=== PATIENT | female | born 1945 | race Caucasian/White ===

== ENCOUNTER 2019-05-28 15:12 | Inpatient (IN) ==
--- NOTE | 2019-05-28 15:46 | Diag Imaging Result Doc PS360 ---
EXAM: CT HEAD W/O CONTRAST 05/28/2019 HISTORY: facial numbness TECHNIQUE: This exam was performed using automated exposure control, adjustment of mA or kV according to patient size, and/or use of iterative reconstruction technique. COMMENT: There is no evidence of mass effect, bleed, or abnormal extra-axial fluid collection. There is no evidence of hydrocephalus. Compared to 03/11/2019 there has been no significant change. The visualized paranasal sinuses are clear. The calvarium is intact. IMPRESSION: No evidence of acute intracranial disease. Electronically signed by Brayden Benitez 05/28/2019 3:43 PM
--- NOTE | 2019-05-28 15:54 | Diag Imaging Result Doc PS360 ---
EXAM: CHEST-PORTABLE 05/28/2019 HISTORY: stroke like symptoms TECHNIQUE: AP portable at 1538 COMMENT: There is apical pleural thickening bilaterally. There is a granuloma in the left apex. There are surgical clips in the left axillary and right chest wall region. There is a large hiatal hernia. There are no previous studies. IMPRESSION: No evidence of acute intrathoracic disease. Electronically signed by Brayden Benitez 05/28/2019 3:52 PM
[2019-05-28 16:24] LABS: URINE SOURCE CLEAN CATCH
[2019-05-28 16:28] LABS: BILIRUBIN URINE NEGATIVE (NEGATIVE); BLOOD URINE NEGATIVE (NEGATIVE); COLOR YELLOW; GLUCOSE URINE NEGATIVE (NEGATIVE); KETONE URINE NEGATIVE (NEGATIVE); LEUKOCYTES URINE TRACE (NEGATIVE); NITRITE URINE NEGATIVE (NEGATIVE); PH URINE 5.5; PROTEIN URINE TRACE mg/dL (NEGATIVE); SP GRAVITY URINE 1.023; TURBIDITY URINE CLEAR (CLEAR); UR EPITHELIAL CELLS <10 /HPF (<10); URINE BACTERIA NEGATIVE /HPF; URINE RBC <10 /HPF (<10); URINE WBC <10 /HPF (<10); UROBILINOGEN URINE NORMAL (NORMAL)
[2019-05-28 16:33] LABS: BASO# 0.06 X1000 (0.0-0.2); BASO% 0.6 % (0.0-0.8); EOS# 0.34 X1000 (0.0-0.7); EOS% 3.6 % (0.0-10.0); HEMATOCRIT 38.4 % (37.0-47.0); HEMOGLOBIN 12.6 g/dL (12.0-16.0); IMM GRAN# 0.03 X1000 (0.0-0.04); IMM GRAN% 0.3 % (0.0-0.5); LYMPH# 2.23 X1000 (1.2-3.4); LYMPH% 23.3 % (20.5-51.1); MCH 29.3 PG (27-31); MCHC 32.8 g/dL (33-37); MCV 89.3 FL (81-99); MONO# 0.52 X1000 (0.11-0.59); MONO% 5.4 % (1.7-9.3); MPV 10.5 FL (7.4-10.4); NEUT# 6.39 X1000 (1.4-6.5); NEUT% 66.8 % (42.2-75.2); PLT 262 X1000 (130-400); RDW 12.5 % (11.5-14.5); WBC 9.57 X1000 (4.8-10.8)
[2019-05-28 16:40] LABS: UR AMPHETAMINES QUAL NONE DETECTED (NONE DETECT); UR BARBITUATES QUAL NONE DETECTED (NONE DETECT); UR BENZODIAZEPIN QUAL NONE DETECTED (NONE DETECT); UR CANNABINOIDS QUAL NONE DETECTED (NONE DETECT); UR COCAINE QUAL NONE DETECTED (NONE DETECT); UR METHADONE QUAL NONE DETECTED (NONE DETECT); UR OPIATES QUAL NONE DETECTED (NONE DETECT); UR OXYCODONE QUAL NONE DETECTED (NONE DETECT); UR PCP QUAL NONE DETECTED (NONE DETECT)
[2019-05-28 16:49] LABS: INR 0.91; PROTIME 12.3 Seconds (11.0-16.0); PTT 26.8 Seconds (22.3-41.8)
[2019-05-28 17:22] LABS: AGAP 17; ALB/GLOB RATIO 1.4; ALBUMIN 4.1 g/dL (3.5-5.0); ALKALINE PHOSPHATASE 78 U/L (32-104); BUN 24 mg/dL (8-22); CALCIUM 9.8 mg/dL (8.8-10.2); CHLORIDE 100 mmol/L (98-107); COSMO 280; CREATININE 0.8 mg/dL (0.5-0.9); ESTIMATED GFR > 60; GLUCOSE 98 mg/dL (70-104); GOT 22 U/L (10-30); GPT 20 U/L (10-36); POTASSIUM 4.9 mmol/L (3.5-5.1); SODIUM 138 mmol/L (136-145); TCO2 21 mmol/L (25-35); TOTAL BILIRUBIN 0.19 mg/dL (0.20-1.00)
--- NOTE | 2019-05-28 18:39 | PROVIDER DOCUMENTATION ---
This chart was entered by Kylah Alcala Scribe, acting as scribe for Ilya Zarate MD. HPI-Neurological Disorder - General Chief Complaint: Stroke-Like Symptoms Stated Complaint: "STROKE SYMPTOMS" Time Seen by Provider: 05/28/19 16:07 Source: patient Allergies/Adverse Reactions: Patient Allergies Allergy/AdvReac Type Severity Reaction Status Date / Time pentazocine [From Talwin] Allergy NAUSEA/VOMI Verified 03/11/19 16:58 TING povidone-iodine Allergy RASH Verified 03/11/19 16:58 [From Betadine] prochlorperazine Allergy "affects Verified 03/11/19 16:58 [From Compazine] my central nervous system" soap [From Betadine] Allergy RASH Verified 03/11/19 16:58 Home Medications: Home Medication List Medication Instructions Recorded Confirmed Last Taken Type Amlodipine Besylate 2.5 mg PO DAILY 10/30/16 03/11/19 10/30/16 10:30 History Aspirin EC 81 mg PO DAILY 10/30/16 03/11/19 10/30/16 10:30 History Brimonidine 0.1% Ophth Soln 1 drop OP DAILY 10/30/16 03/11/19 10/30/16 10:30 History [Alphagan P 0.1% Ophth Soln] Cholecalciferol (Vitamin D3) 1,000 unit PO DAILY 10/30/16 03/11/19 10/30/16 10:30 History [Vitamin D3] Lansoprazole 30 mg PO BID 10/30/16 03/11/19 10/30/16 10:30 History Lisinopril 20 mg PO DAILY 10/30/16 03/11/19 10/30/16 10:30 History Metformin HCl 500 mg PO BID 10/30/16 03/11/19 10/30/16 10:30 History PRAVAstatin [Pravachol] 10 mg PO QHS 10/30/16 03/11/19 10/29/16 22:00 History Glimepiride 1 mg PO DAILY 03/11/19 03/11/19 Unknown History Metoprolol Succinate E.r. [Toprol 50 mg PO DAILY 03/11/19 03/11/19 Unknown History Xl] Raloxifene HCl 60 mg PO DAILY 03/11/19 03/11/19 Unknown History - History of Present Illness-Neuro Nature of Presenting Problem: Patient is a 73 year old female who presents with numbness and tingling to right arm and lips. States symptoms started at 1300 and lasted for 1 hour. Reports dizziness and nausea with numbness and tingling. States having a possible TIA 20 years ago. Reports she takes 81 mg ASA Severity: reports: mild Onset/Duration: reports: this afternoon (1300) Timing: reports: gone now Context: reports: paresthesia, other (numbness) Character of Deficits: reports: altered sensation (numbness and tingling) New weakness or altered sensation location:: reports: RUE (right hand), other (lips) Associated Symptoms: reports: dizziness, nausea Similar Symptoms Previously?: No Recently seen or treated by another doctor?: No Review of Systems - Adult - REVIEW OF SYSTEMS - ADULT Constitutional: reports: no symptoms reported Eyes: reports: no symptoms reported Ears, Nose, Mouth & Throat: reports: no symptoms reported Cardiovascular: reports: no symptoms reported Respiratory: reports: no symptoms reported Gastrointestinal: reports: no symptoms reported Genitourinary: reports: no symptoms reported Musculoskeletal: reports: no symptoms reported Integumentary: reports: no symptoms reported Neurological: reports: no symptoms reported Psychiatric: reports: no symptoms reported Endocrine: reports: no symptoms reported Hematologic/Lymphatic: reports: no symptoms reported Allergic/Immunologic: reports: no symptoms reported All Other Systems: Reviewed and Negative Past History - Adult - PAST MEDICAL HISTORY-ADULT Review of Records: reports: Old Records Reviewed, Nursing Assessment Review, Medications Reviewed, Social history reviewed & non-contributory. Major Childhood Illnesses: reports: denies history Cardiovascular: reports: HTN, hyperlipidemia Respiratory: reports: denies history Gastrointestinal: reports: GERD Obstetrical/Gynecological: reports: denies history Genitourinary: reports: denies history Musculoskeletal: reports: denies history Neurological: reports: TIA Psychiatric: reports: denies history Endocrine/Immune: reports: anemia, Diabetes Other Conditions: reports: denies history - PRIOR SURGERIES/PROCEDURES Surgical/Procedure History: reports: reviewed, not pertinent - IMMUNIZATION STATUS Childhood Immunizations: See Nurse Assessment Flu Vaccine: See Nurse Assessment - FAMILY HISTORY Family History: reviewed, not pertinent - SOCIAL HISTORY Smoking: denies Substance Use: denies Living Situation: family Physical Exam- Neurological - Physical Exam-Neuro Initial Vital Signs Reviewed: Yes General Appearance: alert, no apparent distress. negative: lethargic Eye Exam: bilateral eye: normal inspection HENMT: normocephalic/atraumatic, moist mucous membranes. negative: angioedema Head Injury: no evidence of injury. negative: active bleeding, lacerations Respiratory: chest non-tender, lungs clear, normal breath sounds. negative: crackles, stridor Cardiovascular: regular rate, rhythm. negative: tachycardia, systolic murmur Abdominal Exam: normal bowel sounds, non tender, soft. negative: rigid Extremity: non-tender, normal inspection. 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 negative: abnormal speech, facial droop Coordination/Gait: negative Romberg's sign Motor/Sensory: no motor deficit, no pronator drift. negative: sensory deficit Neurologic: grossly normal, no motor/sensory deficits. negative: aphasia, facial droop Integumentary: normal color, normal turgor, warm/dry. negative: diaphoresis, pallor Psych/Mental Status: normal mood/affect, normal thought content, normal thought process, oriented x 3. negative: tearful Progress - PLAN OF CARE/RESULTS Progress/Plan/Lab Results: Vital Signs - 8 hr 05/28/19 15:14 Temperature 98.3 F Pulse Rate 88 Respiratory Rate 16 Blood Pressure 169/66 O2 Sat by Pulse Oximetry 98 Laboratory Results - last 24 hr 05/28/19 05/28/19 05/28/19 16:08 16:08 16:08 WBC RBC Hgb Hct MCV MCH MCHC RDW Std Deviation Plt Count MPV Immature Gran % (Auto) Neut % (Auto) Lymph % (Auto) [place] % (Auto) Eos % (Auto) Baso % (Auto) Immature Gran # (Auto) Neut # (Auto) Lymph # (Auto) [place] # (Auto) Eos # (Auto) Baso # (Auto) PT INR PTT (Actin FS) Sodium 138 Potassium 4.9 Chloride 100 Carbon Dioxide 21 L Anion Gap 17 BUN 24 H Creatinine 0.8 Estimated GFR/1.73 m2 > 60 BUN/Creatinine Ratio 30 Glucose 98 Calculated Osmolality 280 Calcium 9.8 Total Bilirubin 0.19 L AST 22 ALT 20 Alkaline Phosphatase 78 Troponin T High Sens 6 Total Protein 7.0 Albumin 4.1 Globulin 2.9 Albumin/Globulin Ratio 1.4 Urine Source Urine Color Urine Turbidity Urine pH Ur Specific [place] Urine Protein Ur Glucose (Stick) Ur Ketones (Stick) Urine Blood Urine Nitrite Urine Bilirubin Urobilinogen Dipstick Urine Leukocytes Urine WBC (Auto) Urine RBC (Auto) U Epithel Cells (Auto) Urine Bacteria (Auto) Urine Opiates Screen NONE DETECTED Ur Oxycodone Screen NONE DETECTED Ur Methadone, Qual NONE DETECTED Ur Barbiturates Screen NONE DETECTED Ur Phencyclidine Scrn NONE DETECTED Ur Amphetamines Screen NONE DETECTED U Benzodiazepines Scrn NONE DETECTED Urine Cocaine Screen NONE DETECTED U Cannabinoids Screen NONE DETECTED 05/28/19 05/28/19 05/28/19 16:08 16:08 16:08 WBC 9.57 RBC 4.30 Hgb 12.6 Hct 38.4 MCV 89.3 MCH 29.3 MCHC 32.8 L RDW Std Deviation 12.5 Plt Count 262 MPV 10.5 H Immature Gran % (Auto) 0.3 Neut % (Auto) 66.8 Lymph % (Auto) 23.3 [place] % (Auto) 5.4 Eos % (Auto) 3.6 Baso % (Auto) 0.6 Immature Gran # (Auto) 0.03 Neut # (Auto) 6.39 Lymph # (Auto) 2.23 [place] # (Auto) 0.52 Eos # (Auto) 0.34 Baso # (Auto) 0.06 PT 12.3 INR 0.91 PTT (Actin FS) 26.8 Sodium Potassium Chloride Carbon Dioxide Anion Gap BUN Creatinine Estimated GFR/1.73 m2 BUN/Creatinine Ratio Glucose Calculated Osmolality Calcium Total Bilirubin AST ALT Alkaline Phosphatase Troponin T High Sens Total Protein Albumin Globulin Albumin/Globulin Ratio Urine Source CLEAN CATCH Urine Color YELLOW Urine Turbidity CLEAR Urine pH 5.5 Ur Specific [place] 1.023 Urine Protein TRACE A Ur Glucose (Stick) NEGATIVE Ur Ketones (Stick) NEGATIVE Urine Blood NEGATIVE Urine Nitrite NEGATIVE Urine Bilirubin NEGATIVE Urobilinogen Dipstick NORMAL Urine Leukocytes TRACE A Urine WBC (Auto) <10 Urine RBC (Auto) <10 U Epithel Cells (Auto) <10 Urine Bacteria (Auto) NEGATIVE Urine Opiates Screen Ur Oxycodone Screen Ur Methadone, Qual Ur Barbiturates Screen Ur Phencyclidine Scrn Ur Amphetamines Screen U Benzodiazepines Scrn Urine Cocaine Screen U Cannabinoids Screen Orders Category Date Time Status Cardiac Monitoring DIRECTED Care 05/28/19 15:22 Active Finger Stick Blood Sugar (ED) DIRECTED Care 05/28/19 15:22 Active Saline Loc NOW Care 05/28/19 15:22 Active CHEST-PORTABLE [RAD] Stat Exams 05/28/19 15:[address] HEAD W/O CONTRAST [CT] Stat Exams 05/28/19 15:18 Completed CBC WITH ELECTRONIC DIFF [HEME] Stat Lab 05/28/19 16:08 Completed COMPREHENSIVE METABOLIC PANEL [CHEM] Stat Lab 05/28/19 16:08 Completed PROTIME WITH INR [COAG] Stat Lab 05/28/19 16:08 Completed PTT [COAG] Stat Lab 05/28/19 16:08 Completed TROPONIN T HIGH SENSITIVITY Stat Lab 05/28/19 16:08 Completed URINALYSIS W/POSS RFLX CULT [URINALYSIS] Stat Lab 05/28/19 16:08 Completed URINE CULTURE [RM] Routine Lab 05/28/19 16:45 Received URINE DRUG SCREEN Stat Lab 05/28/19 16:08 Completed EKG [EKG] Stat Ther 05/28/19 15:22 Ordered Result Diagrams: 05/28/19 16:08 05/28/19 16:08 - REASSESSMENT Reassessment #1 Status: unchanged (spoke to Dr Billy covering for Dr Yung, patient with TIA symptoms, will need admit TIA workup, he will see in ER.) - XRAY 1 XRAY Study: Chest Impression: See EMR Report ( EXAM: CHEST-PORTABLE 05/28/2019 HISTORY: stroke like symptoms TECHNIQUE: AP portable at 1538 COMMENT: There is apical pleural thickening bilaterally. There is a granuloma in the left apex. There are surgical clips in the left axillary and right chest wall region. There is a large hiatal hernia. There are no previous studies. IMPRESSION: No evidence of acute intrathoracic disease. Electronically signed by Brayden Benitez 05/28/2019 3:52 PM 05/28/19 1552 Interpreting Physician: Brayden Benitez MD Dictated Date/Time: 05/28/19 1551 cc: Ilya Zarate MD; Miguel Yung MD) - CT/MRI 1 CT Study: Head Impression: See EMR Report ( EXAM: CT HEAD W/O CONTRAST 05/28/2019 HISTORY: facial numbness TECHNIQUE: This exam was performed using automated exposure control, adjustment of mA or kV according to patient size, and/or use of iterative reconstruction technique. COMMENT: There is no evidence of mass effect, bleed, or abnormal extra-axial fluid collection. There is no evidence of hydrocephalus. Compared to 03/11/2019 there has been no significant change. The visualized paranasal sinuses are clear. The calvarium is intact. IMPRESSION: No evidence of acute intracranial disease. Electronically signed by Brayden Benitez 05/28/2019 3:43 PM 05/28/19 1543 Interpreting Physician: Brayden Benitez MD Dictated Date/Time: 05/28/19 1542 cc: Ilya Zarate MD; Miguel Yung MD) Departure - Departure Date of Disposition Decision: 05/28/19 Time of Disposition Decision: 18:37 DIAGNOSIS: TIA (transient ischemic attack) Disposition: ADMITTED INPATIENT 09 Certified Medical Emergency: Emergent Condition: Stable Additional Instructions: ED Follow Up Instructions: You have been treated by a care provider in the Emergency Department. These instructions are being provided to you so you can have an understanding of how to care for yourself upon discharge. Upon discharge from the Emergency Depar tment, you are responsible for making arrangements for follow-up care by a physician of your choice. Take all prescribed medications as directed. Return to the Emergency Department immediately for any new or worsening symptoms. You may call the Physician Referral phone number at [phone] to obtain a list of Physicians who are taking new patients. Referrals and Follow-Ups: Miguel Yung MD [Primary Care Provider] - - Critical Care Note This patient required my direct & personal management of CC.: No Attestation - Physician/ ALEJANDRO Attestation Patient care was provided by Advanced Practice Provider:: No The physician spent face to face time with patient:: Yes Advanced Practice Provider documentation review:: Supervising physician onsite and consulted in the evaluation and care of this patient. The physician did have a face to face encounter with the patient. This chart was documented by the eagle scribe, (yKlah Alcala Scribe) and accurately reflects the services I performed and decisions made by , Ilya Zarate MD, as attested by the provider's signature.
--- NOTE | 2019-05-28 19:46 | HISTORY AND PHYSICAL ---
HISTORY OF PRESENT ILLNESS: Ms. Maldonado is a 73-year-old patient of Dr. Miguel Yung. She stated about 12 p.m. she experienced a 1-hour episode of right hand numbness in the right side of her mouth and then it dissipated. No trouble with speech. No trouble with memory or swallowing, or any other neurologic deficit that she could appreciate. No trouble with walking. She felt a little bit dizzy headed. 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 She has been on aspirin every day since that time. She has a history of diabetes mellitus type 2, history of hypertension. She has had breast cancer and 1 breast mastectomy followed by chemotherapy, and then recurrent breast cancer and they caught it early, and she had I think a right-sided mastectomy, so she has had bilateral mastectomies. She has a history of glaucoma, and she has been taking some drops. She did get evaluated by Cardiology for chest pain and she said everything checked out good. She does not have any history of coronary artery disease, or a left ventricular dysfunction, or rhythm issues. No history of atrial fibrillation. She denies any fever or chills, change in her bowels, or diarrhea. She did have a little nausea during this episode of the numbness. FAMILY HISTORY: The report is noncontributory. Really do not report any history of heart, lung or kidney problems that she is aware of. ALLERGIES: She is allergic to Talwin. SOCIAL HISTORY: Negative for alcohol or tobacco. Her is at the bedside. The daughter is a nurse and I did discuss this with her on the phone. REVIEW OF SYSTEMS: General: No weight gain or loss. No fever or chills. HEENT: Unremarkable. Respiratory: No increased work of breathing or dyspnea. Cardiovascular: No chest pain or tachypalpitations. Gastrointestinal and Genitourinary: No gross hematuria or dysuria. Musculoskeletal/Neurologic: Really no focal motor episode at all. She had some sensory deficit, numbness in her right hand and the right side of her face, which is transient. Skin: No skin rash. Endocrinologic/Hematologic: No significant history. PHYSICAL EXAMINATION: GENERAL: In the emergency room she is awake and alert, oriented x3, pleasant. VITAL SIGNS: Temperature is 98.3 degrees, pulse 88, respirations 16, blood pressure 169/66, O2 saturation is 98%. Weight is 181 pounds. Height is 5 feet 4 inches. HEENT: Pupils are equal and round. LUNGS: Clear in all lung chamorro. CARDIOVASCULAR: Regular rhythm and rate without murmur or S3. ABDOMEN: Soft, nondistended, nontender. SKIN: Warm and dry. NEUROLOGIC: Cranial nerves II-XII intact. Sensory is completely intact in all dermatomes. Motor strength is 5/5 in all motor groups. No asymmetry. Reflexes 2+ and symmetrical in the forearm, patella and ankle. There is no skin rash. Oral and nasal mucosa unremarkable. NECK: Supple. No adenopathy. No carotid bruits appreciated. ABDOMEN: No abdominal bruits. No femoral bruits. Pulses in the carotid radial femoral, popliteal and pedal pulses 2+ and symmetrical. No pedal edema. LABORATORY DATA: White count 9570, hematocrit is 38, platelet count 262,000. Sodium is 138, potassium 4.9, chloride 100, BUN 24, creatinine 0.8, calcium is 9.8, AST is 22, ALT is 20, alkaline phosphatase is 78, albumin 4.1. Urinalysis was negative for opiates, oxycodone, methadone, barbiturates, phencyclidine, amphetamines, benzodiazepines, cocaine, and cannabinoids, and urinalysis was unremarkable. IMAGING: Chest x-ray, no evidence of acute intrathoracic process. There is no infiltrates. There is some granuloma in the left apex. There is some surgical clips in the left axillary and right chest wall region. There is a large hiatal hernia. No previous studies to compare. Head CT without contrast, no evidence of acute intracranial disease. ASSESSMENT AND PLAN: 1. It sounds like a possible transient ischemic event which would be in the in the left parietal area for sensory, and it is very transient. I do not hear any evidence of peripheral vascular disease such as carotid bruits or abdominal or femoral bruits, but we will get a carotid study done and we will get an MRI of her head tomorrow. I will also get an echocardiogram to make sure there is no mural thrombus. We will put her on a monitor and make sure she does not have any arrhythmia such as atrial fibrillation. I will give her some normal saline and we will watch her blood pressure but we will have a great deal of tolerance to blood pressure even if it is above 160 at this point. We will check a lipid profile. Looking at her medication list she is on aspirin 81 mg a day. She takes eyedrops timolol to both eyes, lisinopril 20 mg a day, metformin 500 mg a day, glyburide 1 mg a day, raloxifene 60 mg daily, amlodipine 2.5 mg daily, metformin also again in the evening 500 mg she takes I think 2 of them in the evening, D3 1000 units daily, pravastatin 20 mg daily, and then she repeats lisinopril 20 mg in the evening, iron she gets iron infusions as needed, metoprolol succinate ER 50 mg tablet daily. I will add Plavix to her regimen. 2. Diabetes mellitus type 2. Follow pattern sugars. 3. Hypertension. We will watch her blood pressure, we will have tolerance of blood pressure even if it is greater than 160 at this point. 4. History of breast cancer status post bilateral mastectomies. cc: Myke Wills MD MTDD
[2019-05-28] MEDS ORDERED: ZOFRAN IV PRN (21:41)
[2019-05-28] MEDS ORDERED: TYLENOL PO PRN (21:41)
[2019-05-28] MEDS: GLUCOPHAGE PO SCH (22:31)
[2019-05-28] MEDS: PRAVACHOL PO SCH (22:32)
[2019-05-28] MEDS: PRILOSEC PO SCH (22:32)
[2019-05-28] MEDS: NS 1,000 ML IV SCH (22:32)
[2019-05-29 08:08] LABS: BASO# 0.04 X1000 (0.0-0.2); BASO% 0.6 % (0.0-0.8); EOS# 0.33 X1000 (0.0-0.7); EOS% 4.6 % (0.0-10.0); HEMATOCRIT 36.9 % (37.0-47.0); HEMOGLOBIN 12.1 g/dL (12.0-16.0); LYMPH# 2.05 X1000 (1.2-3.4); LYMPH% 28.3 % (20.5-51.1); MCH 29.7 PG (27-31); MCHC 32.8 g/dL (33-37); MCV 90.4 FL (81-99); MONO# 0.45 X1000 (0.11-0.59); MONO% 6.2 % (1.7-9.3); MPV 10.3 FL (7.4-10.4); NEUT# 4.37 X1000 (1.4-6.5); NEUT% 60.3 % (42.2-75.2); PLT 228 X1000 (130-400); RBC 4.08 XMIL (4.2-5.4); RDW 12.4 % (11.5-14.5); WBC 7.24 X1000 (4.8-10.8)
[2019-05-29 08:44] LABS: AGAP 14; ALB/GLOB RATIO 1.4; ALBUMIN 3.6 g/dL (3.5-5.0); ALKALINE PHOSPHATASE 67 U/L (32-104); BUN 18 mg/dL (8-22); CALCIUM 9.1 mg/dL (8.8-10.2); CHLORIDE 104 mmol/L (98-107); COSMO 284; CREATININE 0.7 mg/dL (0.5-0.9); ESTIMATED GFR > 60; GLUCOSE 117 mg/dL (70-104); GOT 19 U/L (10-30); GPT 17 U/L (10-36); MAGNESIUM 1.4 mg/dL (1.5-2.7); POTASSIUM 4.1 mmol/L (3.5-5.1); SODIUM 141 mmol/L (136-145); TCO2 23 mmol/L (25-35); TOTAL BILIRUBIN 0.35 mg/dL (0.20-1.00); TOTAL PROTEIN 6.2 g/dL (6.3-8.3)
--- NOTE | 2019-05-29 08:49 | PROGRESS NOTE ---
DATE: 05/29/2019 Ms. Maldonado had a good night. No complaints. No numbness or change in motor strength. Speech is good. Swallow is good. The plan today is to get an echocardiogram, to get a noninvasive carotid study. She appears to remain in sinus rhythm. I suspect she had a small TIA in the left cortex likely because it involved her right hand with just sensory symptoms and her right periorbital just around her lips in a small area and resolved after an hour. OBJECTIVE: Vital Signs: Temp 97.5 degrees, pulse 70, respirations 14, blood pressure 140/60. HEENT: Pupils are equal and round. Lungs: Are clear in all lung chamorro. Cardiovascular: Regular rhythm and rate without murmur or S3. Abdomen: Is soft. Skin: Is warm and dry. Urine output was 2000 mL. So the plan today I think is echocardiogram with Doppler studies on her carotids. Continue to monitor her rhythm. Her blood pressures are doing well and she did ask for some Imodium that she takes for her irritable bowel. We will make sure she has that. cc: MD Miguel Molina MD
[2019-05-29] MEDS: GLUCOPHAGE PO SCH ×2 (09:26→20:32)
[2019-05-29] MEDS: ASPIRIN EC PO SCH (09:26)
[2019-05-29] MEDS: IMODIUM PO PRN (09:26)
[2019-05-29] MEDS: TOPROL XL PO SCH (09:26)
[2019-05-29] MEDS: VITAMIN D PO SCH (09:27)
[2019-05-29] MEDS: EVISTA PO SCH (09:27)
[2019-05-29] MEDS: PRILOSEC PO SCH ×2 (09:27→20:31)
[2019-05-29] MEDS: NORVASC PO SCH (09:27)
[2019-05-29] MEDS: AMARYL PO SCH (09:28)
[2019-05-29] MEDS: PRINIVIL PO SCH (09:28)
[2019-05-29] MEDS: ALPHAGAN P 0.1% OPHTH SOLN BOTH EYES SCH (09:29)
[2019-05-29] MEDS: NS 1,000 ML IV SCH ×2 (09:29→22:35)
--- NOTE | 2019-05-29 09:39 | EKG Report ---
Test Performed on : 05/29/2019 06:14:14 AM Test Reason : chest pain Blood Pressure : / mmHG Vent. Rate : 072 BPM Atrial Rate : 072 BPM P-R Int : 160 ms QRS Dur : 088 ms QT Int : 434 ms P-R-T Axes : 049 -25 077 degrees QTc Int : 475 ms Normal sinus rhythm. Voltage criteria for left ventricular hypertrophy Abnormal ECG No previous ECGs available Confirmed by Zachary Rodriguez MD ([id number]) on 05/29/2019 11:01:29 AM
[2019-05-29] MEDS: PRAVACHOL PO SCH (20:31)
[2019-05-30] MEDS: PRILOSEC PO SCH ×2 (08:43→22:00)
[2019-05-30] MEDS: NORVASC PO SCH (08:43)
[2019-05-30] MEDS: ALPHAGAN P 0.1% OPHTH SOLN BOTH EYES SCH (08:43)
[2019-05-30] MEDS: ASPIRIN EC PO SCH (08:44)
[2019-05-30] MEDS: GLUCOPHAGE PO SCH ×2 (08:44→22:01)
[2019-05-30] MEDS: PRINIVIL PO SCH (08:44)
[2019-05-30] MEDS: AMARYL PO SCH (08:44)
[2019-05-30] MEDS: TOPROL XL PO SCH (08:44)
[2019-05-30] MEDS: VITAMIN D PO SCH (08:44)
[2019-05-30] MEDS: IMODIUM PO PRN (08:52)
[2019-05-30] MEDS: EVISTA PO SCH (08:53)
--- NOTE | 2019-05-30 11:09 | ECHO REPORT ---
ORDER DATE: 05/29/2019 INTERPRETING PHYSICIAN: Dr. You Bridges. INDICATIONS: TIA, hypertension, diabetes, breast cancer. MEASUREMENTS: 1. Interventricular septum 1 cm. 2. Left ventricular posterior wall 0.8 cm. 3. Left ventricular diastolic diameter 5.2 cm. 4. Left atrium 4.2 cm. 5. Aorta 2.7 cm. SUMMARY OF THE 2-DIMENSIONAL IMAGIN. Pulmonic valve was normal. 2. Aortic valve leaflets were trileaflet, mildly sclerosed, opening normally. 3. Tricuspid valve was normal. 4. Mitral valve was normal. There is mild tricuspid regurgitation. Peak velocity across the tricuspid valve was 3 m/sec. Pulmonary artery systolic pressure of 50 mmHg. Normal left ventricular cavity size. Estimated ejection fraction of 60%. There is a grade 2 diastolic dysfunction. 5. Peak velocity across the aortic valve less than 2 m/sec by Doppler studies. There is no aortic stenosis or regurgitation. 6. Moderate mitral regurgitation. 7. There is no pericardial effusion. 8. There appears to be a large echogenic structure involving the interatrial septum, and this is suggestive of severe lipomatous hypertrophy. However, there is also extracardiac compression of the left atrium superiorly and posteriorly. This could be an intracardiac structure and/or extracardiac. Would recommend transesophageal echocardiogram; in addition, a CT scan of the chest. cc: MD Myke Albarran MD Russell T. Barr, MD
[2019-05-30] MEDS ORDERED: SOLU-MEDROL IV ONE (11:50)
[2019-05-30] MEDS ORDERED: BENADRYL PO ONE (11:50)
--- NOTE | 2019-05-30 12:41 | CARDIOLOGY CONSULTATION ---
DATE: 05/30/2019 REASON FOR CONSULTATION: Cardiology was consulted for abnormal echocardiogram. Patient is admitted with symptoms suggestive of TIA. HISTORY OF PRESENT ILLNESS: Ms. Maldonado is a 73-year-old, lady. She experienced an hour of right hand numbness, right side of her mouth, which persisted for about an hour. This was not associated with any speech deficit. There was no trouble with memory loss, swallowing, or any other neurological deficit. However, she felt a bit dizzy. She had what they thought was a TIA 20 years ago. At that time, there was no obvious abnormality noted. She had been taking aspirin for the same. She subsequently went to the walk-in clinic and was recommended to come to the hospital and she was admitted. This morning, she feels well, no symptoms. All the symptoms had abated after 1 hour, which she had. She does not complain of any palpitations. There is no dizziness or syncope. There are no chest pains. REVIEW OF SYSTEMS: A 14-point review of systems was done. Cardiovascular System: There is no previous cardiac history. She has history of mitral valve prolapse. Genitourinary System: There is no dysuria or hematuria. Respiratory System: There is no history of cough, expectoration, hemoptysis. There is no history of fevers or chills. Endocrine System: Stable. PAST MEDICAL HISTORY: 1. TIA 20 years back. 2. History of diabetes. 3. History of hypertension. 4. History of breast cancer in her 30s and at that time, she had chemotherapy and mastectomy. This was followed by recurrent breast cancer about 15 years ago. At that time, she also had another mastectomy. She has been followed for the last 15 [facility] [place]. 5. History of mitral valve prolapse. There is no history of any dysrhythmias. ALLERGIES: She is allergic to iodine which she is not sure whether it was related to that. This was noted when she had a port in her 30s. She is allergic to pentazocine and Talwin. SOCIAL HISTORY: Negative for tobacco and alcohol abuse. The patient lives locally. Her daughter is a nurse at [employer]. MEDICATIONS: Include metformin 500 mg p.o. b.i.d., amlodipine 2.5 mg a day, lansoprazole 30 mg b.i.d., enteric-coated aspirin 81 mg a day, pravastatin 10, lisinopril 20, glimepiride 1, metoprolol 50 mg a day, pravastatin 10 mg a day. PHYSICAL EXAMINATION: Vital Signs: Blood pressure was 156/67. First and second heart sounds were heard. There was a faint systolic murmur. Respiratory System: Normal air entry. There were no crepitations and rhonchi. Neck: Jugular venous pressure was normal. There was no lymphadenopathy. Abdomen was soft, nontender. There was no guarding or rigidity. Bowel sounds were heard. Central Nervous System: Alert and oriented. Was moving all 4 extremities. Examination of the extremities revealed no pedal edema. HEENT: Atraumatic, normocephalic. Pupils were equal and reacting to light. LABORATORY EXAMINATION: WBCs 7.24, hemoglobin 12.1, hematocrit 36.9. Sodium 141, potassium 4.1, BUN 18, creatinine 0.7, blood glucose 117. Cardiac enzymes negative. Total protein 6.2, albumin 3.6. TSH 1.1. LDL cholesterol 72. RADIOLOGY REPORTS: Chest x-ray was unremarkable. Head CT, no evidence of acute intracranial pathology. ASSESSMENT AND PLAN: Ms. Radha Maldonado is a 73-year-old, lady with a history of diabetes, hypertension, breast cancer in the past x2, had a transient ischemic attack 20 years back. Comes with complaints of numbness in her right hand and in the face which lasted for about an hour. Symptomatically, she has improved. Significantly since then, her electrocardiogram revealed normal sinus rhythm with poor R-wave progression. No ST changes to suggest ischemia. She had an echocardiogram done which revealed a large echogenic structure noted in the interatrial septum, suggestive of severe lipomatous hypertrophy. However, there appears to be extracardiac compression as well in the left atrium superiorly and posteriorly. Please see detailed echocardiogram report. Given her history and a past history of breast cancer, would recommend the followin. A transesophageal echocardiogram to evaluate the structure and rule out any other intracardiac source of embolism. 2. We will get a CT scan of her chest to see if there is any extracardiac compression. She is allergic to IVP dye which she says she was told when she had the port placed in her 30s for breast cancer. We will give her intravenous Solu-Medrol 120 mg. She is already on omeprazole. We will also give her Benadryl to protect her. 3. We will set up for a transesophageal echocardiogram tomorrow. I had a detailed discussion with the patient, her , as well as her daughter. 4. Hypertension. Continue with the current medications. 5. Diabetes. Continue with the current medications. 6. She is also on lipid-lowering agents with pravastatin. I have not made any other changes to her medications. Thank you for the consult. We will follow hospital course. cc: MD Miguel Albarran MD
--- NOTE | 2019-05-30 13:01 | Diag Imaging Result Doc PS360 ---
EXAM: CT THORAX W/CONTRAST 05/30/2019 HISTORY: tia/ca breast in past/extra cardiac norma by ech TECHNIQUE: This exam was performed using automated exposure control, adjustment of mA or kV according to patient size, and/or use of iterative reconstruction technique. COMMENT: There are no previous studies available for comparison. There is a calcified nodule in the anterior left thyroid lobe measuring 11.5 mm. There is no evidence of significant adenopathy. There is a large hiatal hernia. There is a small pleural fluid collection on the right in the posterior costophrenic sulcus. This is accompanied by atelectasis or fibrosis in the adjacent right lower lobe. The left atrium and ventricle are distended. There is no evidence of pericardial effusion. There are no filling defects in the pulmonary arteries. The aorta is normal in caliber without evidence of dissection. There are minimal fibrotic changes in both apices. There is some atelectasis or fibrosis in the inferior portion of the lingula. The regional skeleton appears to be intact. IMPRESSION: 1. Large hiatal hernia with compressive effects on the right lower lobe and small right pleural effusion. 2. Cardiomegaly. 3. Calcified left thyroid nodule. Electronically signed by Brayden Benitez 05/30/2019 12:58 PM
--- NOTE | 2019-05-30 13:22 | PROGRESS NOTE ---
DATE: 05/30/2019 SUBJECTIVE: Ms. Maldonado has had an unremarkable night. No neurologic deficits. No further trouble with sensation in her right hand or around her mouth. I reviewed her ultrasound of her carotids, and there is no significant disease there, but interesting, the echocardiogram revealed a mass in the left atrium, and I have discussed this with them. We going to need to do an esophageal echocardiogram. We did a CT of her chest, and look at it a little more definitively. Cardiology will be involved. OBJECTIVE: Vital Signs: Her temp is 97.7 degrees, pulse 84, respirations 16, blood pressure 156/67. HEENT: Pupils are equal and round. Lungs: Clear in all lung chamorro. Cardiovascular: Regular rhythm and rate without murmur or S3. Urine output is 2800 mL. ASSESSMENT AND PLAN: 1. Will do a transesophageal echocardiogram to evaluate the structure, rule out any intracardiac source of embolism. Will get a CT of her chest, and look for that as well. She is allergic to IVP dye. She was told this when she had a port placed in her 30s for breast cancer. Will give her some intravenous Solu-Medrol 120 mg, and she is already on omeprazole and Benadryl to protect. 2. Hypertension. Continue present medication. 3. Diabetes mellitus type 2. Sugar is under good control. 4. She is already on pravastatin for lipid-lowering agent. Her blood work was all reviewed. Blood sugars have been 162, 128, 136, and 119. Her and her are aware of the plan. I wonder if there is a possibility of an atrial myxoma, which could explain her two transient ischemic attacks. This is Dr. Miguel Yung's patient, and so I will be following as well, and discuss this with her daughter in the morning. cc: MD Miguel Molina MD
[2019-05-30] MEDS ORDERED: LOPRESSOR PO ONE (16:15)
[2019-05-30] MEDS: NS 1,000 ML IV SCH (16:25)
[2019-05-30] MEDS: PRAVACHOL PO SCH (22:01)
[2019-05-31] MEDS: NS 1,000 ML IV SCH ×2 (04:01→11:12)
--- NOTE | 2019-05-31 07:49 | EKG Report ---
Test Performed on : 05/30/2019 4:06:23 PM Test Reason : STROKE LIKE SYM Blood Pressure : / mmHG Vent. Rate : 088 BPM Atrial Rate : 091 BPM P-R Int : 196 ms QRS Dur : 094 ms QT Int : 396 ms P-R-T Axes : 029 -11 070 degrees QTc Int : 479 ms Normal sinus rhythm. Possible Left atrial enlargement Left ventricular hypertrophy with repolarization abnormality Abnormal ECG When compared with ECG of 29-MAY-2019 06:14, No significant change was found Unconfirmed Result
[2019-05-31] MEDS ORDERED: XYLOCAINE 2% VISCOUS ONE (08:23)
[2019-05-31] MEDS ORDERED: VERSED ONE ×2 (08:23→08:44)
[2019-05-31] MEDS ORDERED: DEMEROL ONE ×2 (08:23→08:44)
[2019-05-31] MEDS ORDERED: XYLOCAINE 4% TOPICAL SOLUTION ONE (08:23)
[2019-05-31] MEDS ORDERED: SODIUM CHLORIDE 0.9% 10 ML ONE (08:23)
[2019-05-31] MEDS ORDERED: CLAVE TWINSITE 32 IN 11959 ONE (08:44)
--- NOTE | 2019-05-31 10:57 | Diag Imaging Result Doc PS360 ---
MRI BRAIN W/WO CONTRAST - 05/29/2019 INDICATION: TIA COMPARISON: Head CT 05/28/2019 FINDINGS: There is a tiny area of restricted diffusion in the left thalamus. This is consistent with a recent small lacunar infarction. No intracranial mass or hemorrhage. There is some mild scattered hyperintensity in the periventricular white matter of the cerebral hemispheres compatible with mild chronic microvascular ischemia. Midline structures are unremarkable. No abnormal contrast enhancement. IMPRESSION: Tiny recent lacunar infarction in the left thalamus. Mild cerebral white matter chronic microvascular ischemia. This report was discussed with RT Bradley on 05/31/2019 at 10:53 AM and was readback. Electronically signed by Rohith Norris 05/31/2019 10:55 AM
[2019-05-31] MEDS: GLUCOPHAGE PO SCH (10:59)
--- NOTE | 2019-05-31 12:09 | Transesophageal Echocardiogram ---
DATE: 05/31/2019 PHYSICIAN: Dr. Ring REQUESTING PHYSICIAN: CLINICAL INDICATIONS: The patient suffered a stroke. Cardiac source of embolism is being investigated.Question of atrial mass on transthoracic echo. PROCEDURE: Transesophageal echocardiography DESCRIPTION: The patient came into the cardiac sleep lab technologist in the fasting state. The throat was anesthetized with viscous lidocaine and Hurricaine. She received a total of 2 mg of Versed and 50 mg of Demerol given in divided doses until adequate sedation was accomplished. The esophagus was intubated without difficulty. Multiple views of the cardiac structure were obtained. SUMMARY OF MAIN FINDINGS: The left atrium and the appendage are well visualized. They are free of abnormalities. The interatrial septum is intact. There is evidence of lipomatosis of the interatrial septum of moderate degree. There is no evidence of patent foramen ovale. Agitated saline was injected. Tricuspid valve is normal. Color flow mapping is unremarkable. Right ventricle is normal. Pulmonic valve is unremarkable. The mitral valve shows moderate degree of regurgitation. There is no evidence of vegetation of mitral valve. The aortic valve has 3 cusps, and they open normally. Color flow mapping is unremarkable. The left ventricle shows normal function. Ejection fraction is 60%. The descending thoracic aorta shows no evidence of any significant plaque. There is no pericardial effusion. CONCLUSIONS: In summary, this transesophageal echocardiogram shows no evidence of any intracardiac lesion that would explain TIA or stroke. There is moderate degree of mitral regurgitation. There is no PFO. There is no significant aortic plaque. The left atrial appendage shows normal function. 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 The patient tolerated the procedure well. Clinical correlation is recommended. cc: MD You Lambert MD Russell T. Barr, MD MTDD
[2019-05-31] MEDS: ASPIRIN EC PO SCH (13:36)
[2019-05-31] MEDS: AMARYL PO SCH (13:36)
[2019-05-31] MEDS: ALPHAGAN P 0.1% OPHTH SOLN BOTH EYES SCH (13:36)
[2019-05-31] MEDS: PRILOSEC PO SCH (13:37)
[2019-05-31] MEDS: EVISTA PO SCH (13:37)
[2019-05-31] MEDS: PRINIVIL PO SCH (13:37)
[2019-05-31] MEDS: TOPROL XL PO SCH (13:37)
[2019-05-31] MEDS: NORVASC PO SCH (13:37)
[2019-05-31] MEDS: VITAMIN D PO SCH (13:38)
[2019-05-31 15:29] VITALS: BP 162/53
--- NOTE | 2019-05-31 17:35 | DISCHARGE SUMMARY ---
ADMISSION DATE: 05/28/2019 DISCHARGE DATE: 05/31/2019 HISTORY: Ms Maldonado was admitted. She is a patient of Dr. Miguel Yung, was admitted on 05/28/2019 discharged on 05/31/2019. This 73-year-old stated that about 12 o'clock that afternoon had episode of right hand numbness, right side of her mouth was numb. No trouble with speech. No trouble with vision. No other focal neurologic deficits reported. No presyncope or syncopal episodes. No palpitation or chest pain. She had an episode of trouble with her speech about 20 years ago that she was told was a TIA. PAST MEDICAL HISTORY: She has a history of diabetes mellitus type 2, history of hypertension, history of breast cancer. She had 1 breast mastectomy followed by the opposite breast mastectomy for recurrence of original breast cancer. She had chemotherapy. She has a history of glaucoma. She takes eyedrops. She has been followed by Cardiology in the past for chest pain and she does not have any history of coronary artery disease that she is aware of. No history of left ventricular dysfunction or arrhythmias. No history of atrial fibrillation. HOSPITAL COURSE: She was admitted to the hospital. CT of the scan without contrast was unremarkable. We did noninvasive carotid studies and there was no significant stenosis in either vessel. We did an echocardiogram, transthoracic, and her pulmonary valve was normal, aortic valve leaflets were trileaflet, mildly sclerosis opened normally. Tricuspid valve was normal. Mitral valve was normal. There was mild tricuspid regurgitation. Peak velocity across tricuspid valve was 3 m/sec. Pulmonary arteries systolic pressure was 50 mmHg. Normal left ventricular size. Estimated ejection fraction 60%. There appeared to be a large echogenic structure involving the intra-atrial septum and this was suggestive of severe lipomatosis hypertrophy. However also could not exclude extracardiac compression of the left atrium superior and posteriorly and so she underwent a transthoracic echocardiogram read by Dr. Ring. There was no evidence of intracardiac lesion that would explain TIA or stroke and moderate degree of mitral regurgitation. There is no PFO. There was no significant aortic plaque. The left atrial appendage showed normal function. Her ejection fraction again was 60% and no evidence of patent foramen ovale again. MRI of her head which was done on 05/29/2019 showed tiny recent lacunar infarction in the left thalamus, mild cerebral white matter, chronic microscopic microvascular changes. Her EKG remained in sinus rhythm. No sign of ectopy. No sign of ischemia. I am going to add Plavix to her regimen and discharge her home. She did state today that she got a little more numbness in her right arm and right hand, a little bit of trouble she notes with writing with the right arm, but she will go home on her Norvasc 2.5 mg a day, aspirin 81 mg a day, Alphagan eyedrops 0.1% 1 think both eyes daily, vitamin D 1000 units p.o. daily, Amaryl 1 mg p.o. daily, lisinopril 20 mg daily. She takes Imodium just as needed for her irritable bowel syndrome. Metformin 500 mg b.i.d., Toprol-XL 50 mg a day, Prilosec 20 mg b.i.d., Pravachol 10 mg at bedtime, and Evista 60 mg daily. We did give her some Solu-Medrol, Benadryl, she had history of allergy to IV contrast before we did the MRI and her sugars did go up the following day, otherwise lab was unremarkable, so I will add Plavix. She was already taking aspirin a day, Plavix 75 mg a day. cc: MD Miguel Molina MD Vernon Ross Hunter
--- NOTE | 2019-06-01 19:29 | Carotid Study ---
DATE: 05/29/2019 PROCEDURE: Bilateral duplex and color flow imaging of the carotid arteries performed using the [employer] Vivid E9 ultrasound system with a 9L-D transducer. REFERRING PHYSICIAN: Dr. Wills. TECHNICAL SALES ENGINEER: Sivan Akbar RVT. INDICATIONS: Transient ischemic attack. FINDINGS: The velocities in cm/sec of the blood flow through both carotid arteries were reviewed. There was forward flow in the right vertebral artery and the right ICA/CCA ratio was 0.61, corresponding to a percent stenosis of 0 to 39 percent. There was forward flow in the left vertebral artery. The left ICA/CCA ratio was 0.67, corresponding to a percent stenosis of 0 to 39 percent. INTERPRETATION: Despite the patient's symptoms, there was only mild atherosclerotic disease of the distal common and internal carotid arteries bilaterally, without evidence of a hemodynamically significant lesion in either carotid system. cc: MD Myke Blount MD Russell T. Barr, MD
== END 2019-05-31 17:42 | disposition home or self-care (01) | DRG 66 ==
LOC: ED 15:12 → 3N 20:40
PROVIDERS: ADMIT Internal Medicine; ATTEND Internal Medicine